=== PATIENT | female | born 1965 | race Caucasian/White ===

== ENCOUNTER 2017-09-08 05:14 | Day surgery (SDC) | payer OTHER ==
[2017-08-15 11:34] VITALS: BMI 55.0
--- NOTE | 2017-08-15 12:09 | PAT Medication Instructions ---
Service Date Aug 15, 2017. Current Home Medication List Acetaminophen (Tylenol), 1,000 MG PO 4-5X A DAY Fexofenadine-Pseudoephedrine (Maty-D 24 Hour Allergy), 1 TAB PO QAM Furosemide (Lasix), 40 MG PO QAM Levothyroxine Sodium (Levothyroxine Sodium), 1 TAB PO QAM [Feosol], 325 MG PO BID [Mucus Relief], 1 TAB PO PRN Medication Instructions For Your Scheduled Surgery - Hold the following medications the morning of surgery: Fexofenadine-Pseudoephedrine (Maty-D 24 Hour Allergy), 1 TAB PO QAM Furosemide (Lasix), 40 MG PO QAM [Feosol], 325 MG PO BID [Mucus Relief], 1 TAB PO PRN - Take the following medications the morning of surgery with a sip of water: Acetaminophen (Tylenol), 1,000 MG PO 4-5X A DAY (can be taken up to four hours before surgery) Levothyroxine Sodium (Levothyroxine Sodium), 1 TAB PO QAM - Take the following medications as scheduled the night before surgery: Acetaminophen (Tylenol), 1,000 MG PO 4-5X A DAY [Feosol], 325 MG PO BID If you have any questions please call us at [phone] or [phone] or [phone]
[2017-08-15 12:43] LABS: BASO % 0.2 %; BASO ABS # 0.02 K/uL (0-0.2); EOS % 1.5 %; EOS ABS # 0.13 K/uL (0-0.5); HEMATOCRIT 40.3 % (37-47); HEMOGLOBIN 12.8 g/dL (12.0-16.0); IG# 0.04 K/uL (0.00-0.02); LYMPH % 20.3 %; LYMPH ABS # 1.77 K/uL (1.2-3.4); MEAN CORPUSCULAR HEMOGLOBIN 25.1 pg (25-34); MEAN CORPUSCULAR HGB CONC 31.8 g/dl (32-36); MEAN PLATELET VOLUME 9.9 fL (7.4-10.4); MONO % 9.7 %; MONO ABS # 0.85 K/uL (0.11-0.59); NEUT % 67.8 %; NEUT ABS # 5.93 K/uL (1.4-6.5); PLATELET COUNT 254 K/uL (130-400); RED CELL DISTRIBUTION WIDTH CV 19.8 % (11.5-14.5); WHITE BLOOD COUNT 8.74 K/uL (4.8-10.8)
--- NOTE | 2017-08-15 12:51 | DIAGNOSTIC IMAGING REPORT ---
CHEST 2 VIEWS ROUTINE CLINICAL HISTORY: Preoperative chest COMPARISON STUDY: No previous studies for comparison. FINDINGS: The heart is mildly enlarged. There is aortic tortuosity/ectasia. There is no failure. There is no focal pulmonary consolidation. There are no pleural effusions.[ IMPRESSION: No active disease in the chest. Electronically signed by: Eliu Morales M.D. 08/15/2017 12:50 PM Dictated Date/Time: 08/15/2017 12:50 PM
[2017-08-15 12:57] LABS: INR 0.9 (0.9-1.1); PTT PATIENT 23.5 SECONDS (21.0-31.0)
[2017-08-15 13:44] LABS: CALCIUM 9.1 mg/dl (8.5-10.1); CREATININE 0.62 mg/dl (0.60-1.20); POTASSIUM 4.3 mmol/L (3.5-5.1)
--- NOTE | 2017-09-07 19:32 | HISTORY & PHYSICAL EXAMINATION ---
DATE OF ADMISSION: 09/08/2017 CHIEF COMPLAINT: Chronic right shoulder pain. HISTORY OF PRESENT ILLNESS: This is a 52-year-old female patient of Dr. Abarca'richard complaining of chronic right shoulder pain for 6 months now. The patient has had no trauma, but she does a lot of lifting and repetitive motions. MRI has confirmed impingement, acromioclavicular arthritis, rotator cuff tear, and calcium deposits. The patient has failed conservative treatment and wishes to proceed with a right shoulder arthroscopic subacromial decompression, distal clavicle excision, rotator cuff repair, needle barbotage, excision of calcific deposits, and possible biceps tenotomy versus tenodesis. PAST MEDICAL HISTORY: Anemia, obesity. She takes diet medications, dental issues. SOCIAL HISTORY: Nonsmoker, nondrinker. PAST SURGICAL HISTORY: Three C-sections. FAMILY HISTORY: Noncontributory. REVIEW OF SYSTEMS: Chronic right shoulder pain and instability as well as decreased strength, otherwise denies any shortness of breath, chest pain, nausea, vomiting or any other joint complaints. MEDICATIONS: Include; 1. Levothyroxine 100 mcg daily. 2. Furosemide 40 mg daily. 3. [id number] Tylenol as needed. 4. Mucus relief as needed. 5. Maty as needed. 6. Ferrous sulfate 325 one to two tablets daily. ALLERGIES: INCLUDE ASPIRIN, IBUPROFEN, BENADRYL, ZYRTEC, DOXYCYCLINE, TRIAMCINOLONE CREAM, AND SULFA ANTIBIOTICS, ALL OF WHICH ARE ANAPHYLAXIS. PHYSICAL EXAMINATION: GENERAL: Well-developed, well-nourished 52-year-old female, in no acute distress. She is alert and oriented x3 and pleasant. HEENT: Normocephalic, atraumatic. Extraocular motions are intact. Pupils are equal and reactive to light. HEART: Regular rate and rhythm, no murmurs appreciated. LUNGS: Clear. ABDOMEN: Soft and nontender. Bowel sounds are present. EXTREMITIES: Physical exam of the right shoulder reveals active range of motion of 0-160, passively full with pain. She has positive impingement maneuvering. She has 4/5 strength globally. NEUROLOGIC: Neurovascularly, she is intact in her right upper extremity. DIAGNOSES: Right shoulder acromioclavicular arthritis, rotator cuff tear, calcium deposits, and biceps tendinosis. She also has a history of anemia, obesity, taking diet medications, and dental issues. PLAN: The patient was advised of her diagnosis. Indications, risks, benefits, postop course have all been reviewed. The patient wished to proceed with a right shoulder arthroscopic subacromial decompression, distal clavicle excision, rotator cuff repair, needle barbotage, excision of calcium deposit, and possible tenotomy versus biceps tenodesis. Necessary consent forms, preoperative testing and clearances will be obtained.
[~2017-09-08] VITALS: Ht 157.5 cm; Wt 137.9 kg
[~2017-09-08 05:14] MED LIST: ACET-1256 PO; FEOSOL PO; FEXO1TAB58 PO; FRS/40 PO; LEVO100T7 PO; MUCUS RELIEF PO
[2017-09-08] MEDS ORDERED: AMOX500C3 PO (05:49)
[2017-09-08] MEDS ORDERED: LACTATED RINGER'S 1000ML 1,000 ML IV SCH (06:00)
[2017-09-08] MEDS ORDERED: CEFAZOLIN 3000MG IV PUSH 22.5 ML IV SCH (06:00)
[2017-09-08 06:01] VITALS: BP 136/75; PULSE 91; TEMP 36.9; O2SAT 96; Ht 157.5 cm; Wt 137.9 kg
[2017-09-08] MEDS ORDERED: SCOPOLAMINE 1.5 MG TDSY TD ONE (06:31)
[2017-09-08] MEDS ORDERED: DEXAMETHASONE SOD INJ 4 MG/ML VIAL ONE (06:32)
[2017-09-08] MEDS ORDERED: LIDOCAINE HCL 2% 2 ML VIAL (20MG/ML) ONE (06:32)
[2017-09-08] MEDS ORDERED: SUCCINYLCHOLINE CHLORIDE 20 MG/ML 10 ML VIAL IV ONE (06:32)
[2017-09-08] MEDS ORDERED: FENTANYL CITRATE INJ 50 MCG/1 ML 2 ML VIAL ONE (06:32)
[2017-09-08] MEDS ORDERED: PROPOFOL IV EMULSION 10 MG/ML 20 ML VIAL IV ONE (06:32)
[2017-09-08] MEDS ORDERED: ROCURONIUM BROMIDE 10 MG/ML 5 ML VIAL IV ONE ×2 (06:32→07:58)
[2017-09-08] MEDS ORDERED: ONDANSETRON INJ 2 MG/ML 2 ML VIAL ONE ×2 (06:32→09:43)
[2017-09-08] MEDS ORDERED: MIDAZOLAM HCL 1 MG/ML 2ML VIAL ONE (06:32)
[2017-09-08] MEDS ORDERED: ROPIVACAINE 0.5% 5 MG/ML 30 ML VIAL ONE (06:34)
[2017-09-08] MEDS ORDERED: HYDROmorphone INJ 1 MG/ML SYR IV PRN (06:45)
[2017-09-08] MEDS ORDERED: LABETALOL HCL IV 5 MG/ML 20ML IV PRN (06:45)
[2017-09-08] MEDS ORDERED: SCOPOLAMINE 1.5 MG TDSY TD SCH (06:45)
[2017-09-08] MEDS ORDERED: EpHEDrine SULFATE INJ 50 MG/ML AMP IV PRN (06:45)
[2017-09-08] MEDS ORDERED: PROMETHAZINE HCL INJ 12.5 MG in SODIUM CHLORIDE 0.9% 50ML 50 ML IV PRN (06:45)
[2017-09-08] MEDS ORDERED: PHENYLEPHRINE 100MCG/ML 5ML SYR IV PRN (06:45)
[2017-09-08] MEDS ORDERED: ONDANSETRON INJ 2 MG/ML 2 ML VIAL IV PRN (06:45)
[2017-09-08] MEDS ORDERED: ATROPINE SULFATE 0.1 MG/ML 5ML SYR IV PRN (06:45)
--- NOTE | 2017-09-08 06:50 | History & Physical Bridge Note ---
H&P Re-Evaluation Bridge Note: I have examined the patient, reviewed the History & Physical and in the interval since the performance of the History & Physical I have noted the following changes of clinical significance: No changes noted
[2017-09-08] MEDS ORDERED: EpINEphrine HCL INJ 1 MG/ML 1ML SYRINGE ONE ×2 (06:56→07:55)
[2017-09-08] MEDS ORDERED: CHECK SCOPOLAMINE PATCH PLACEMENT SCH (08:00)
[2017-09-08] MEDS ORDERED: EpHEDrine SULFATE INJ 50 MG/ML AMP ONE (08:12)
[2017-09-08] MEDS ORDERED: GLYCOPYRROLATE INJ 0.2 MG/ML VIAL ONE (08:56)
[2017-09-08] MEDS ORDERED: NEOSTIGMINE METHYLSULFATE 5 MG/5 ML SYR ONE (08:56)
--- NOTE | 2017-09-08 09:28 | [facility] Post Operative Brief Note ---
Immediate Operative Summary Operative Date Sep 08, 2017. Pre-Operative Diagnosis Right Shoulder: Acromioclavicular Arthritis, Rotator Cuff Tear, Calcium Deposits, and Biceps Tendinosis Post-Operative Diagnosis Right Shoulder: Acromioclavicular Arthritis, Rotator Cuff Tear, Calcium Deposits, and Biceps Tendinosis biceps siddhartha disruption Procedure(s) Performed Right Shoulder: Arthroscopic Subacromial Decompression, Distal Clavicle Excision, Rotator Cuff Repair, Needle Barbatoge, Excison of Calcific Deposits, Bicep Tenotomy, debridement Surgeon Dr. Abarca Tufting Machine Fixer Surgeon(s) JEFF Nuñez Estimated Blood Loss 15ml Findings Consistent with Post-Op Diagnosis Specimens none per surgeon Drains None Anesthesia Type General Regional Complication(s) none Disposition Disposition: Recovery Room / PACU
[2017-09-08] MEDS ORDERED: ESMOLOL HCL 10 MG/ML 10 ML VIAL ONE (09:29)
[2017-09-08] MEDS ORDERED: SODIUM CHLORIDE 0.9% 1000ML 1,000 ML IV SCH (09:32)
[2017-09-08] MEDS ORDERED: OXYC1TAB3 PO (09:35)
--- NOTE | 2017-09-08 09:41 | Discharge Instructions ---
Discharge Instructions Date of Service Sep 08, 2017. Admission Reason for Admission: Right Shoulder Impingement Syndrome, Osteoarthriti Discharge Discharge Diagnosis / Problem: Right shoulder rotator cuff repair, distal clavicle excision, decompression Discharge Goals Goal(s): Improve function Activity Recommendations Activity Limitations: as noted below . Instructions / Follow-Up Instructions / Follow-Up Please see printed home exercises and Instruction sheets in chart. No driving Patient verbally states she can take OxyIR but does not tolerate percocet, so OxyIR as prescribed. Follow up with Dr. Abarca 10-12 days post op as scheduled, call [phone] to confirm appt. Current Hospital Diet Patient's current hospital diet: Discharge Diet Recommended Diet: Regular Diet Procedures Procedures Performed: Right Shoulder: Arthroscopic Subacromial Decompression, Distal Clavicle Excision, Rotator Cuff Repair, Needle Barbatoge, Excison of Calcific Deposits, Bicep Tenotomy, debridement Pending Studies Studies pending at discharge: no Medical Emergencies . Who to Call and When: Medical Emergencies: If at any time you feel your situation is an emergency, please call 911 immediately. . Non-Emergent Contact Non-Emergency issues call your: Primary Care Provider . "Provider Documentation" section prepared by Rober Hoyt. . [place] Drug Monitoring Program Search Results: patient reviewed within database, no issues identified
[2017-09-08] MEDS: FENTANYL CITRATE INJ 50 MCG/1 ML 2 ML VIAL IV PRN ×4 (10:07→10:24)
[2017-09-08] MEDS ORDERED: HYDROmorphone INJ 2 MG/ML SYR/VIAL ONE (10:23)
--- NOTE | 2017-09-08 10:56 | Anesthesiology Progress Note ---
Anesthesia Post Op Note Date & Time Sep 08, 2017 at 10:56 Vital Signs Pain Intensity: 6 Vital Signs Past 12 Hours Date Time Temp Pulse Resp B/P (MAP) Pulse Ox O2 Delivery O2 Flow Rate FiO2 09/08/17 10:36 131/86 09/08/17 10:33 86 16 93 09/08/17 10:33 87 16 09/08/17 10:31 130/88 09/08/17 10:28 93 21 96 09/08/17 10:28 93 21 09/08/17 10:27 128/87 09/08/17 10:26 93 16 09/08/17 10:26 94 16 92 09/08/17 10:21 91 20 09/08/17 10:21 91 20 150/84 94 09/08/17 10:16 92 19 134/74 92 09/08/17 10:16 92 19 09/08/17 10:11 96 24 09/08/17 10:11 98 24 142/93 99 09/08/17 10:06 97 22 149/84 100 09/08/17 10:06 96 22 09/08/17 10:01 109 19 09/08/17 10:01 36.4 91 19 142/93 99 Nasal Cannula 2 09/08/17 10:01 96 19 153/92 95 09/08/17 09:56 93 16 09/08/17 09:56 93 16 143/90 100 09/08/17 09:55 92 18 09/08/17 09:55 92 18 09/08/17 09:51 146/64 09/08/17 09:50 96 21 09/08/17 09:50 96 21 100 09/08/17 09:47 143/85 18 09:45 97 19 09/08/17 09:45 97 19 98 18 09:41 135/85 18 09:40 100 16 97 18 09:40 101 16 18 09:38 152/78 18 09:36 138/102 18 09:35 36.4 97 152/78 (88) 95 18 09:35 100 20 18 09:35 100 20 97 09/08/17 06:01 36.9 91 16 136/75 (95) 96 Room Air Notes Mental Status: alert / awake / arousable, participated in evaluation Pt Amnestic to Procedure: Yes Nausea / Vomiting: adequately controlled Pain: adequately controlled Airway Patency, RR, SpO2: stable & adequate BP & HR: stable & adequate Hydration State: stable & adequate Anesthetic Complications: no major complications apparent
[2017-09-08 11:10] VITALS: BP 141/70; PULSE 91; TEMP 36.7; O2SAT 90
[2017-09-08 11:30] VITALS: BP 133/63; PULSE 90; O2SAT 93
[2017-09-08 12:10] VITALS: BP 147/73; PULSE 97; TEMP 37; O2SAT 94
[2017-09-08] MEDS ORDERED: OXYCODONE HCL IR 5 MG TAB (IMMEDIATE RELEASE) ONE (12:12)
[2017-09-08] MEDS ORDERED: NURSING VERBAL MED ORDER ONE (12:15)
[2017-09-08] MEDS ORDERED: OXYCODONE HCL IR 5 MG TAB (IMMEDIATE RELEASE) PO PRN (12:30)
--- NOTE | 2017-09-08 17:44 | [facility] Operative Report ---
Operative Report Operative Date Sep 08, 2017. Pre-Operative Diagnosis Right Shoulder: Acromioclavicular Arthritis, Rotator Cuff Tear, Calcium Deposits, and Biceps Tendinosis Post-Operative Diagnosis Same complex delaminated supraspinatus tendon tear calcific deposit infrasp Procedure(s) Performed Right shoulder arthroscopy rotator cuff repair subacromial decompression distal clavicle excision debridement and tenotomy biceps tendon, needle barbotage and excision calcium deposit infraspinatus tendon Surgeon Dr. Abarca Liquefier Surgeon(s) JEFF Nuñez Estimated Blood Loss 15ml Findings Complex delaminated supraspinatus tendon tear with rotator cuff tendinopathy, biceps siddhartha injury unstable biceps tendon and biceps tendinopathy. Calcium deposit infraspinatus tendon, subacromial impingement and grade 4 DJD AC joint. Specimens none per surgeon Drains None Anesthesia Regional block general Complication(s) None Disposition Recovery Room / PACU Indications 52-year-old female status post shoulder injury x-rays and MRI demonstrate type II-III acromion with impingement bone edema AC joint and arthritis AC joint with full-thickness anterior rotator cuff tear supraspinatus with a supraspinatus muscle cyst with calcific tendinitis infraspinatus. Description of Procedure The patient was to the operating room anesthetized under regional block and general anesthesia. The patient was positioned on the operating table in the 70 beachchair position. All of the other extremities were well-padded. The right upper extremity was prepped and draped in the usual sterile fashion. Examination demonstrated a woman of short stature obese arm crepitation with range of motion no instability. Arthroscopy of the shoulder was performed via anterior and posterior arthroscopy portals. Posterior portal was placed in the soft spot and the anterior portal was placed in the rotator interval. Subsequent portals included lateral subacromial portal and a superior lateral incision for suture anchor placement. The following findings were noted: In the glenohumeral joint there was good articular surfaces. The supraspinatus rotator cuff had a full- thickness anterior rotator cuff tear with cable being disrupted anteriorly and the biceps siddhartha rendered unstable and the biceps tendon had significant tendinopathy extending down into the bicipital groove with the anchor the biceps intact and the labrum normal and the subscapularis tendon was intact and the infraspinatus tendon was intact. In the subacromial space, there was significant impingement from a type III acromion and a significant spur on the undersurface of the acromion and some prominence of the lateral acromion as well causing impingement. There is clearly a full-thickness tear of the supraspinatus with a complex tear with delamination between the superior and inferior flap of the supraspinatus with a tear extending deep into the tendon. There was a well-defined calcific deposit in the infraspinatus tendon. There is chronic subacromial bursitis. Attention was first taken to the Glenohumeral joint. The biceps tendon was debrided back to intact but still tendinopathic tissue. A tenotomy was performed using a radiofrequency ablator leaving a wider base to the resection to assist with Omar muscle prevention. The footprint of the supraspinatus was debrided and the undersurface of the supraspinatus was debrided. In the subacromial space and a thorough bursectomy was performed. Radiofrequency ablator was used to ablate the bursa on the undersurface of the acromion and release the CA ligament anteriorly and ablate the inferior capsule of the AC joint exposing 1 cm distal clavicle. A subacromial decompression performed using the 5.5 prior to plane down the acromion process to a type I flat shape and the 1 cm distal clavicle was resected leaving some of the superior and posterior capsule intact for stability purposes. The rotator cuff repair was performed using double row fixation. A 2.8 mm Q fix suture anchor was placed just off the articular margin and the sutures were passed using a scorpion suture passer through the thick undersurface flap and then repaired that back to the articular margin area using [place] sliding locking knot 3 reversed half hitches and alternating posts. A [id number] suture was placed between the supraspinatus and infraspinatus as this was a reverse L-type tear. Then a triple loaded Helicoil [employer] suture anchor was placed in the lateral tuberosity of the footprint with good fixation. 1 of the sutures was passed around the side to side suture as a ripstop technique. The other 2 sutures were passed more anteriorly and similar scalp knots were used to tie these all down repairing the superior leaf of the cuff tear anatomically to the greater tuberosity. The repair was secure with the opposite side with no sniffing tension on repair. I did tie the side to side suture down with similar arthroscopic knot. There was no impingement with passive range of motion. The portal sites were closed with nylon sutures sterile dressings were applied and a pillow sling immobilizer. Rober AGUILAR has been persistently function is persistent for the entire procedure. He assisted in patient positioning prepping draping arm positioning instruments management suture management and performed the skin closure and will participate in the postoperative care of the patient. The portal sites were closed with interrupted nylon sutures. Sterile dressings were applied and a sling immobilizer. The patient tolerated the procedure well. I attest to the content of the Intraoperative Record and any orders documented therein. Any exceptions are noted below.
== END 2017-09-08 12:55 | disposition home or self-care (01) ==
LOC: C.ACU 05:14 → EEVIPCON 10:15 → C.ACU 12:55
PROVIDERS: ATTEND Orthopaedic Surgery Sports Medicine
DX: M13.811 Other specified arthritis, right shoulder (principal); M25.811 Other specified joint disorders, right shoulder; S46.011A Strain of muscle(s) and tendon(s) of the rotator cuff of right shoulder, initial encounter; X50.9XXA Other and unspecified overexertion or strenuous movements or postures, initial encounter; G62.9 Polyneuropathy, unspecified; E66.01 Morbid (severe) obesity due to excess calories; D64.9 Anemia, unspecified; Z79.899 Other long term (current) drug therapy; Z88.6 Allergy status to analgesic agent; Z88.8 Allergy status to other drugs, medicaments and biological substances; Z88.1 Allergy status to other antibiotic agents; Z88.2 Allergy status to sulfonamides